=== PATIENT | male | born 1970 | race Caucasian/White ===

== ENCOUNTER 2018-05-22 12:00 | Emergency (ER) | payer OTHER ==
[2018-05-22 12:24] VITALS: BP 158/87; PULSE 70; RESP 18; TEMP 98.2
--- NOTE | 2018-05-22 12:49 | XR ---
EXAMINATION TYPE: XR hand complete LT DATE OF EXAM: 05/22/2018 COMPARISON: NONE HISTORY: Pain TECHNIQUE: 3 view left hand FINDINGS: No acute fractures are evident. Mild joint space narrowing is present. Soft tissues are nor mal. IMPRESSION: 1. Negative three-view left hand. 2. Follow-up can be performed 7-10 days from acute trauma for continued pain.
--- NOTE | 2018-05-22 12:50 | XR ---
EXAMINATION TYPE: XR wrist complete LT DATE OF EXAM: 05/22/2018 COMPARISON: NONE HISTORY: Pain TECHNIQUE: 4 view left wrist FINDINGS: No acute displaced fractures evident. Soft tissues appear normal. Joint spaces are preserve d. There is pain at the anatomic snuff box, a nuclear medicine bone scan could be performed for addition al evaluation. Follow-up exams of the hand and wrist can be performed 7-10 days from acute trauma for continued pain. IMPRESSION: 1. Normal 4 view left wrist
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
== END 2018-05-22 13:10 | disposition home or self-care (01) ==
LOC: EC 12:00
DX: M25.532 Pain in left wrist (principal); M70.88 Other soft tissue disorders related to use, overuse and pressure other site; I10 Essential (primary) hypertension; Z79.899 Other long term (current) drug therapy; X50.1XXA Overexertion from prolonged static or awkward postures, initial encounter; Y93.55 Activity, bike riding
CPT/HCPCS: 99283

== ENCOUNTER → 2018-05-24 | Outpatient (CLI) | payer OTHER ==
--- NOTE | 2018-05-25 06:55 | CT ---
EXAMINATION TYPE: CT sinus wo con DATE OF EXAM: 05/24/2018 COMPARISON: NONE HISTORY: Chronic sinusitis and hearing loss. Dizziness and sense of falling per patient. CT DLP: 651.8 mGycm. Automated Exposure Control for Dose Reduction was Utilized. TECHNIQUE: CT scan of the sinuses is performed without contrast, axial images are obtained, coronal r eformatted images are also reviewed. FINDINGS: The paranasal sinuses including the frontal, ethmoid, sphenoid, and maxillary sinuses bila terally are well-aerated without abnormal opacification. The ostiomeatal complex is patent bilateral ly on the coronal images. Nasal septum is slightly deviated to right of midline. Visualized portion of mastoid air cells show no abnormal opacification. The globes are intact bilate rally. IMPRESSION: The sinuses are clear and the ostiomeatal complex is patent bilaterally.
--- NOTE | 2018-05-25 06:58 | CT ---
EXAMINATION TYPE: CT iac wo con DATE OF EXAM: 05/24/2018 COMPARISON: NONE HISTORY: Chronic sinusitis and hearing loss per order. Pressure behind ears for 2- 3 months with dizz iness and sense of falling per patient. CT DLP: 226.7 mGycm. Automated Exposure Control for Dose Reduction was Utilized. TECHNIQUE: CT scan of internal auditory canal is performed without contrast, thin cut axial images ar e obtained, coronal reformatted images are also reviewed. FINDINGS: The external auditory canals are patent bilaterally. Mastoid air cells show no evidence of abnormal opacification bilaterally. The middle ear ossicles are symmetric and unremarkable. There is no evidence of suspicious surrounding soft tissue density to suggest cholesteatoma. The scutum is preserved bilaterally. The cochlea and the semicircular canals are symmetric and unremarkable. Ves tibular aqueduct and internal carotid canal appear unremarkable. Temporomandibular joints are maintained bilaterally. Visualized paranasal sinuses are grossly clear. Visualized portion brain parenchyma is felt within normal limits. IMPRESSION: No significant abnormality seen to account for patient's symptoms.
== END | disposition home or self-care (01) ==
LOC: RADCTMAIN 16:19
PROVIDERS: ATTEND Otolaryngology
DX: J32.9 Chronic sinusitis, unspecified (principal); H91.90 Unspecified hearing loss, unspecified ear; J33.9 Nasal polyp, unspecified
CPT/HCPCS: 70480; 70486

== ENCOUNTER → 2019-07-20 | Outpatient (CLI) | payer OTHER ==
--- NOTE | 2019-07-20 12:49 | US ---
EXAMINATION TYPE: US venous doppler duplex LE LT DATE OF EXAM: 07/20/2019 11:48 AM COMPARISON: NONE CLINICAL HISTORY: M25.562 pain in left leg. Pain and edema left leg SIDE PERFORMED: Left TECHNIQUE: The lower extremity deep venous system is examined utilizing real time linear array sonog brando with graded compression, doppler sonography and color-flow sonography. VESSELS IMAGED: External Iliac Vein (EIV) Common Femoral Vein Deep Femoral Vein Greater Saphenous Vein * Femoral Vein Popliteal Vein Small Saphenous Vein * Proximal Calf Veins (* superficial vessels Left Leg: Negative for DVT IMPRESSION: 1. Left lower extremity negative for deep venous thrombosis
== END | disposition home or self-care (01) ==
LOC: RADUSWWP 11:30
PROVIDERS: ATTEND Orthopaedic Surgery
DX: M79.662 Pain in left lower leg (principal); M17.12 Unilateral primary osteoarthritis, left knee; E66.01 Morbid (severe) obesity due to excess calories

== ENCOUNTER 2020-07-01 10:28 | Day surgery (SDC) | payer OTHER ==
[2020-06-28 08:48] VITALS: BMI 53.8
[~2020-07-01 10:28] MED LIST: LACTATED RINGERS 1,000 ML IV SCH; LIDOCAINE 1% (10MG/ML) FOR IV START INTRADERMA PRN
[2020-07-01 10:41] VITALS: RESP 18; TEMP 97.7
[2020-07-01] MEDS ORDERED: PROPOFOL 10 MG/ML 20 ML VIAL IV ONE (11:08)
--- NOTE | 2020-07-01 11:37 | P.PCN ---
Date of Procedure: 07/01/20 Description of Procedure: BRIEF HISTORY: Patient is a 50-year-old male presenting for outpatient colonoscopy for evaluation of screening for malignant neoplasm colon. No prior colonoscopy. No family history of colon cancer. No complaints of abdominal pain or change in bowel habits. PROCEDURE PERFORMED: Colonoscopy. PREOPERATIVE DIAGNOSIS: Screening for malignant neoplasm of the colon. No prior colonoscopy. ESTIMATED BLOOD LOSS: Minimal. IV sedation per Anesthesia. PROCEDURE: After informed consent was obtained, the patient, was brought into the endoscopy unit. IV sedation was administered by Anesthesia under continuous monitoring. Digital rectal examination was normal. Initially the Olympus CF-190 flexible video colonoscope was then inserted in the rectum, gradually advanced into the cecum without any difficulty. Careful examination was performed as the scope was gradually being withdrawn. Ileocecal valve and the appendiceal orifice were visualized and appeared normal. Prep was excellent. Mucosa of the cecum, ascending colon, transverse colon, descending colon, sigmoid colon, and rectum appeared normal. Retroflexion was performed in the rectum and no lesions were seen, low-grade internal hemorrhoids. The patient tolerated the procedure well. IMPRESSION: Normal-appearing colon from rectum to cecum. RECOMMENDATIONS: Findings of this examination were discussed with the patient. Okay to resume diet. Okay to resume medications. Would recommend repeat colonoscopy in 10 years for screening for malignant neoplasm of the colon, or sooner if any signs or symptoms which warrant further evaluation develop.
[2020-07-01 11:39] VITALS: PULSE 53
[2020-07-01 11:57] VITALS: BP 121/74
== END 2020-07-01 12:12 | disposition home or self-care (01) ==
LOC: ORWHC2ENDO 10:28
PROVIDERS: ATTEND Internal Medicine
DX: Z12.11 Encounter for screening for malignant neoplasm of colon (principal); K64.8 Other hemorrhoids; I10 Essential (primary) hypertension; K21.9 Gastro-esophageal reflux disease without esophagitis; E66.9 Obesity, unspecified; Z68.43 Body mass index [BMI] 50.0-59.9, adult; Z79.899 Other long term (current) drug therapy; Z79.1 Long term (current) use of non-steroidal anti-inflammatories (NSAID); Z90.89 Acquired absence of other organs; Z98.890 Other specified postprocedural states; Z86.69 Personal history of other diseases of the nervous system and sense organs
CPT/HCPCS: J2704; G0121; 45378

== ENCOUNTER → 2020-09-24 | Outpatient (CLI) | payer OTHER ==
[2020-09-24 11:08] LABS: Basophils % (A) 1 %; Eosinophils # (A) 0.1 k/uL (0-0.7); Eosinophils % (A) 2 %; HCT 44.8 % (39.0-53.0); HGB 14.4 gm/dL (13.0-17.5); Lymphocytes # (A) 0.8 k/uL (1.0-4.8); Lymphocytes % (A) 10 %; MCH 29.1 pg (25.0-35.0); MCHC 32.2 g/dL (31.0-37.0); MCV 90.4 fL (80.0-100.0); Mean Platelet Volume 8.5; Monocytes # (A) 0.4 k/uL (0-1.0); Monocytes % (A) 5 %; Neutrophils # (A) 6.4 k/uL (1.3-7.7); Neutrophils % (A) 82 %; Platelet Count 227 k/uL (150-450); RBC 4.95 m/uL (4.30-5.90); RDW 13.6 % (11.5-15.5); WBC 7.9 k/uL (3.8-10.6)
[2020-09-24 11:21] LABS: Potassium 3.8 mmol/L (3.5-5.1)
== END | disposition home or self-care (01) ==
LOC: LABPAT 09:37
PROVIDERS: ATTEND Orthopaedic Surgery
DX: M23.92 Unspecified internal derangement of left knee (principal)
CPT/HCPCS: 80051; 85025; 93005

== ENCOUNTER 2020-10-10 11:21 | Day surgery (SDC) | payer OTHER ==
[2020-10-08 15:44] VITALS: BMI 53.8
--- NOTE | 2020-10-09 15:26 | HP ---
HISTORY AND PHYSICAL DATE OF SURGERY: 10/10/2020 Quincy Max is a 50-year-old gentleman seen progressive left knee pain. We discussed treatment options with him. He elected to proceed with left knee arthroscopy. Consent regarding the procedure was obtained. PAST MEDICAL HISTORY: Hypertension. PAST SURGICAL HISTORY: Carpal tunnel release. DAILY MEDICATIONS: Amlodipine, hydrochlorothiazide, losartan, meloxicam. ALLERGIES: NONE. SOCIAL HISTORY: He denies current tobacco use. PHYSICAL EVALUATION OF THE LEFT KNEE: Range of motion is -1/2 to 120. Mild effusion. Tenderness, medial joint line. Positive medial Ed's. Ligaments stable. Hip rotation without pain. Distal neurovascular exam intact. IMAGING: Left knee radiographs reveal moderate osteoarthritic changes. Left knee MRI revealed a complex medial meniscal tear as well as osteoarthritic changes. IMPRESSION: 1. Internal derangement of the left knee with medial meniscal tear. 2. Left knee osteoarthritis. 3. Hypertension. 4. Obesity. PLAN: Left knee arthroscopy with partial meniscectomy, partial synovectomy and debridement. MMODL / IJN: [id number] /
[~2020-10-10 11:21] MED LIST changes: +DEXAMETHASONE SOD PHOSPHATE 4 MG/ML 1 ML VIAL IV ONE; +HYDROmorphone 0.5 MG/0.5 ML SYRINGE IVP PRN; -LIDOCAINE 1% (10MG/ML) FOR IV START INTRADERMA PRN; +ONDANSETRON 4 MG/2 ML VIAL IVP ONE; +ceFAZolin 3 GM in SODIUM CHLORIDE 0.9% 100 ML IVPB ONE
[2020-10-10 12:13] VITALS: RESP 16
[2020-10-10] MEDS ORDERED: fentaNYL (PF) 50 MCG/ML 2 ML AMP ONE (13:01)
[2020-10-10] MEDS ORDERED: PROPOFOL 10 MG/ML 20 ML VIAL IV ONE (13:01)
[2020-10-10] MEDS ORDERED: MIDAZOLAM 2 MG/2 ML VIAL ONE (13:01)
[2020-10-10] MEDS ORDERED: SUCCINYLCHOLINE CHLORIDE VIAL 200 MG/10 ML VIAL IV ONE (13:01)
[2020-10-10] MEDS ORDERED: LIDOCAINE 1% INJ 10MG/ML (20 ML MDV) ONE (13:01)
[2020-10-10] MEDS ORDERED: BUPIVACAINE (PF) 0.25% 30 ML VIAL INTRAARTIC ONE (13:31)
--- NOTE | 2020-10-10 13:54 | P.OP ---
Date of Procedure: 10/10/20 Preoperative Diagnosis: Internal derangement left knee Postoperative Diagnosis: 1. Tear lateral meniscus left knee 2. Grade 2/3 chondromalacia medial femoral condyle left knee 3. Grade 3 chondromalacia lateral femoral condyle left knee 4. Reactive synovitis medial, lateral and suprapatellar compartments left knee Procedure(s) Performed: 1. Arthroscopic partial lateral meniscectomy left knee 2. Arthroscopic chondroplasty medial femoral condyle left knee 3. Arthroscopic chondroplasty lateral femoral condyle left knee 4. Arthroscopic partial synovectomy medial, lateral and suprapatellar compartments left knee Anesthesia: ROBERTAA, local Surgeon: Ez Barraza Estimated Blood Loss (ml): 6 Pathology: none sent Condition: stable Disposition: PACU Indications for Procedure: 50-year-old patient seen with progressive left knee pain. After having treatment options discussed, he elected to proceed with arthroscopy. Operative Findings: See description of procedure Description of Procedure: Patient was taken to the operative suite. Patient underwent a general anesthetic by the department of anesthesia. Patient was given preoperative antibiotics. The left lower extremity was placed in a well-padded arthroscopic leg hernández. The left leg was prepped and draped in the normal sterile orthopedic fashion. A lateral parapatellar and suprapatellar incision was made. Trochars were inserted. Arthroscopy was initiated. Suprapatellar pouch revealed diffuse thick reactive synovitis. The patellofemoral joint appeared to articulate congruently. There was grade 2/3 chondromalacia of the patellofemoral joint with no osteochondral tears present. The scope was guided into the medial gutter. No loose bodies or plica were identified. The scope was then guided into the medial compartment. A medial parapatellar incision was made. Trocar inserted followed by probe. The medial meniscus was found to be stable. There were grade 2/3 chondromalacia changes of the medial femoral condyle with some osteochondral flap tears present. There was thick reactive synovitis anteriorly. I performed a chondroplasty of the medial femoral condyle getting down to stable tissue. I performed a partial synovectomy decompressing the reactive synovitis. The residual osteochondral surface was stable. There was good decompression of the synovitis. Scope and probe were then guided into the intercondylar notch. Cruciates were identified, probed and found to be stable. The scope and probe were then guided into lateral compartment. The lateral femoral condyle revealed grade 3 chondromalacia changes with diffuse osteochondral flap tears present. There was a radial tear involving the midbody lateral meniscus. There was thick reactive some-itis anteriorly. I performed a partial lateral meniscectomy. I performed chondroplasty of the lateral femoral condyle getting down to stable osteochondral tissue. I performed a partial synovectomy decompressing the reactive synovitis. The residual meniscus was stable. The residual osteochondral surface appears stable again noting grade 3 chondromalacia. There was good decompression of synovitis. The scope was in guided back into the suprapatellar compartment. I introduced a motorized shaver into the suprapatellar compartment. I performed a partial synovectomy decompressing reactive synovitis. The shaver was removed. I took one more look on the entire knee, no residual debris. Instruments were now removed from the joint. The joint was infiltrated with .25% Marcaine. Steri-Strips were applied to the portal sites. Sterile dressings were applied. The patient was placed into a PETROS hose. No tourniquet was utilized. The patient was awakened, transferred to a bed and taken to recovery stable satisfactory condition.
[2020-10-10 14:08] VITALS: TEMP 97.1
[2020-10-10] MEDS ORDERED: HYDROcodone/APAP 7.5-325MG 1 EACH TAB ONE (14:42)
[2020-10-10] MEDS ORDERED: HYDROcodone/APAP 7.5-325MG 1 EACH TAB PO ONE (14:45)
[2020-10-10 15:02] VITALS: BP 120/77; PULSE 52
== END 2020-10-10 15:41 | disposition home or self-care (01) ==
LOC: OR 11:21
PROVIDERS: ATTEND Orthopaedic Surgery
DX: M23.262 Derangement of other lateral meniscus due to old tear or injury, left knee (principal); M94.262 Chondromalacia, left knee; M65.862 Other synovitis and tenosynovitis, left lower leg; M17.12 Unilateral primary osteoarthritis, left knee; I10 Essential (primary) hypertension; E66.01 Morbid (severe) obesity due to excess calories; K08.409 Partial loss of teeth, unspecified cause, unspecified class; Z98.890 Other specified postprocedural states; Z86.69 Personal history of other diseases of the nervous system and sense organs; Z79.899 Other long term (current) drug therapy; Z79.1 Long term (current) use of non-steroidal anti-inflammatories (NSAID); Z68.43 Body mass index [BMI] 50.0-59.9, adult; Z91.09 Other allergy status, other than to drugs and biological substances
CPT/HCPCS: 29881; 29876; J2250; J0330; J1100; J0690; J2405; J2001; J3010; J2704

== ENCOUNTER 2020-10-18 15:14 | Emergency (ER) | payer OTHER ==
--- NOTE | 2020-10-18 15:34 | ED ---
General Adult HPI - General Stated complaint: Cardiac Arrest Time Seen by Provider: 10/18/20 15:23 - History of Present Illness Initial comments: Dictation was produced using [employer] dictation software. please excuse any grammatical, word or spelling errors. This patient was cared for during a federal and state declared state of emergency secondary to Covid 19 Chief Complaint: 50-year-old male presents with cardiac arrest History of Present Illness: HPI received from EMS. 50-year-old male is brought in by EMS for cardiac arrest. Initial call was for dyspnea. Patient was awake alert and oriented however appeared very sickly appearing according to EMS. Patient lives in [place]. EMS reports that patient had a witnessed arrest and CPR was initiated immediately. Initial cardiac rhythm was asystole. Patient arrested at approximately 2:00 PM. CPR was continued. EMS reports that patient had return of spontaneous circulations on 3 separate occasions however only short-lived for maybe a minute. Patient was intubated en route. He received 14 rounds of epinephrine. Patient allegedly had unspecified knee surgery approximately one week ago. EMS reports that at some point there was EKG computer reading of anterior myocardial infarction. He did have ventricular fibrillation at some point. He had 3 defibrillation's. Unable to obtain review of systems secondary to mental status PHYSICAL EXAM: General Impression: Obtunded dry corneas, fixed and dilated pupils, obese HEENT: Normocephalic atraumatic, cyanotic, intubated Cardiovascular: Pulseless Chest: Bilateral breath sounds with bag mask ventilation Abdomen: Obese, soft abdomen, nonrigid Musculoskeletal: no peripheral edema bilateral lower extremities appeared equal in girth at the level of the calf, dressings to the left knee Neurological: No movement of the extremities, fixed dilated pupils Skin: Pale, cyanotic ED course: 50 yo Male presents with cardiac arrest. He underwent cardiac pulmonary resuscitation for approximately an hour and a half prior to arrival.. Patient allegedly had left knee surgery 1 week ago. Patient was immediately received directly from EMS bay into trauma 1. Patient was pulseless upon immediate arrival. ekg monitor tech showed asystole. Cardiac pulmonary resuscitation was continued for multiple rounds. Patient was given calcium, sodium bicarbonate. Blood sugar was 495. Please see CODE BLUE sheet for more detailed exhalation of CPR. Given the limited history from EMS there is concern that patient suffered cardiac arrest secondary to myocardial infarction versus pulmonary embolus given that patient had recent surgery. [id number] bedside ultrasound confirmed no pulse using color Doppler to the right femoral artery. Cardiac echocardiogram showed no cardiac activity. Deep vein of the bilateral lower extremities at the level just inferior to the inguinal ligament showed compressibility of the femoral veins. Patient was coded for several minutes. He continued to be asystole with no cardiac activity on [id number] bedside ultrasound. Given patient's clinical presentation and down time, at 3:20 PM CPR was stopped. Time of was announced. At approximately 3:45 PM, and news was announced of her passing. was obviously devastated. More history was obtained from . She reports that patient was in his usual state of health. They were out and about doing errands and he is appeared to be in his usual state of health when all of a sudden he began complaining to her of some mild shortness of breath earlier today. She reports that he did not complain of any leg swelling, calf pain, popliteal pain or thigh pain. She reports that he has no history of cardiac disease. Patient's list of primary care provider is Kristin Haines. I did contact Zaki who states that she is agreeable to sign patient's certificate. Case was discussed with certified medical transcriptionist Maria Isabel Forman who is aware. - Related Data Home Medications Medication Instructions Recorded Confirmed Diclofenac Sodium Gel [Voltaren 1 applicate TOPICAL DAILY PRN 06/28/20 10/08/20 Gel] Loratadine 10 mg PO DAILY 06/28/20 10/08/20 Losartan Potassium 100 mg PO DAILY 06/28/20 10/08/20 Meloxicam [Mobic] 15 mg PO DAILY 06/28/20 10/08/20 Vitamin B Complex 1 each PO DAILY 06/28/20 10/08/20 amLODIPine BESYLATE 10 mg PO DAILY 06/28/20 10/08/20 hydroCHLOROthiazide 25 mg PO DAILY 06/28/20 10/08/20 Previous Rx's Medication Instructions Recorded HYDROcodone/APAP 7.5-325MG [Kelso 1 each PO Q6HR PRN #15 tab 10/10/20 7.5] Allergies Allergy/AdvReac Type Severity Reaction Status Date / Time No Known Allergies Allergy Verified 10/10/20 12:11 Review of Systems ROS Statement: Those systems with pertinent positive or pertinent negative responses have been documented in the HPI. ROS Other: All systems not noted in ROS Statement are negative. Past Medical History Past Medical History: Hypertension, Osteoarthritis (OA) Additional Past Medical History / Comment(s): ARTHRITIS IN KNEES, NECK AND JAW., ENVIRONMENTAL ALLERGIES., STATES LITTLE TOE DOES NOT MOVE -USES CANE. (PT TO SEE SLEEVE MAKER) History of Any Multi-Drug Resistant Organisms: None Reported Past Surgical History: Adenoidectomy, Tonsillectomy Additional Past Surgical History / Comment(s): carpel tunnel sinus scraping Past Anesthesia/Blood Transfusion Reactions: No Reported Reaction Additional Drug Use History / Comment(s): OCCASIONAL MARIJUANA USE - Past Family History Mother Family Medical History: Cancer Additional Family Medical History / Comment(s): THROAT,KIDNEY AND MELANOMA Critical Care Time Critical Care Time: Yes Total Critical Care Time: 30 Disposition Clinical Impression: Cardiac arrest Disposition: Condition: Undetermined Referrals: Kristin Haines PAC [Primary Care Provider] - 1-2 days Time of Disposition: 17:15 Preliminary Cause of : cardiac arrest
== END 2020-10-19 00:31 | disposition expired ==
LOC: EC 15:14
DX: I46.9 Cardiac arrest, cause unspecified (principal); I10 Essential (primary) hypertension; Z79.1 Long term (current) use of non-steroidal anti-inflammatories (NSAID); Z79.899 Other long term (current) drug therapy
CPT/HCPCS: 92950; 99291